=== PATIENT | male | born 1945 | race Caucasian/White ===

== ENCOUNTER → 2017-06-01 15:34 | Outpatient (CLI) | payer OTHER ==
--- NOTE | ~2017-06-01 | EC ---
PATIENT:YOSVANY RUIZ DATE OF SERVICE: SEX: M MEDICAL RECORD: [id number] DATE OF : 45 LOCATION:[facility] AGE OF PATIENT: 71 ADMISSION DATE: 06/01/17 REFERRING PHYSICIAN: INTERPRETING PHYSICIAN: OLEG GUEVARA MD ECHOCARDIOGRAM REPORT ECHO CHARGES 4 ECHO COMPLETE CLINICAL DIAGNOSIS: ISCHEMIC HEART DISEASE, HX OF CAD/CABG 2016, HTN, DYALISIS ECHOCARDIOGRAPHIC MEASUREMENTS (adult normal given) AC root (d.<3.7cm) 4.1 cm LV Septum d (<1.2 cm> 1.3 cm Valve Excursion 1.1 cm LV Septum (systole) 1.4 cm Left Atria (s.<4.0cm> 4.6 cm LVPW d(<1.2cm) 1.3 cm RV (d.<2.3cm) 5.2 cm LVPW (sytole) 1.6 cm LV diastole(<5.6CM) 6.1 cm MV E-F(>70mm/sec) cm LV systole 3.9 cm LVOT Diameter 1.3 cm MV exc.(>10mm) 1.5 cm Est.ejection fraction (50-75%) % Pericardial Effusion N DOPPLER: LVIT cm/sec A 70.0 cm/sec E 103 cm/sec LA cm/sec RVSP 43 mmHg LVOT 109 cm/sec AOP1/2T m/s Asc. Ao 307 cm/sec RVOT 89 cm/sec RA cm/sec PA 251 cm/sec AV Gradient Peak 37.70mmHg AV Mean 21.54mmHg AV Area 1.3 cm MV Gradient Peak 4.97 mmHg MV Mean 1.00 mmHg MV Area cm COMMENTS: [employer]: Sheila KUMAR Electromechanical Engineer: 1 Dr. Guevara TAPE# PACS DATE OF SERVICE: 06/01/2017 PROCEDURE: Echocardiogram. FINDINGS: 1. Left ventricular chamber size is upper limits of normal, left ventricular systolic function is normal. Overall ejection fraction estimated at 55%. 2. Left atrium is enlarged at 4.6 cm. Right atrium and right ventricular chamber sizes are as well mildly dilated. 3. 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 Valve area calculates to 1.3 cm-squared. There is a gradient of 37 mm across the valve. The remaining valvular structures have normal structure and motion. 4. Doppler interrogation elsewise reveals mild mitral regurgitation, mild tricuspid regurgitation, no other valvular insufficiency or stenosis. Pulmonary systolic pressure is normal estimated at 43 mmHg. 5. No evidence of pericardial effusion or left ventricular thrombus. TRANSINT:[id number] Voice Confirmation ID: [id number] DOCUMENT ID: [id number] OLEG GUEVARA MD at 1018 CC: [id number] DICTATION DATE: 06/01/17 1209 MENTALLY IMPAIRED TEACHER: 06/01/17 1216 [facility] [address] [place] [address]
[2017-06-01 11:40] LABS: APPEARANCE CLEAR (CLEAR); BILIRUBIN NEGATIVE (NEGATIVE); COLOR YELLOW (YELLOW); GLUCOSE NEGATIVE (NEGATIVE); KETONE NEGATIVE (NEGATIVE); NITRITE NEGATIVE (NEGATIVE); PROTEIN 3+ mg/dL (NEGATIVE); UROBILINOGEN NORMAL (NORMAL)
[2017-06-01 11:48] LABS: ALBUMIN 3.7 g/dL (3.4-5.0); ANION GAP 13.4 mmol/L (8-16); BILIRUBIN - TOTAL 0.39 mg/dL (0.2-1.3); CALCIUM 9.6 mg/dL (8.5-10.1); CREATININE - SERUM 5.6 mg/dL (0.6-1.3); POTASSIUM - SERUM 4.4 mmol/L (3.5-5.1); PROTEIN - SERUM 6.7 g/dL (6.4-8.2)
[2017-06-01 11:49] LABS: BACTERIA MODERATE /hpf (NONE SEEN); EPITHELIAL CELLS 0-5 /hpf (0-5); HYALINE CAST 0-5 /lpf (NONE SEEN); MUCUS <1+ /lpf (NONE SEEN); RED CELLS - URINE 0-5 /hpf (0-5); WHITE CELLS - URINE OCC /hpf (0-5)
== END ==
LOC: D.ECHO 05-30 09:00 → D.LAB 05-30 11:00 → D.ECHO 11:00
PROVIDERS: Orthopaedic Surgery
DX: I25.9 Chronic ischemic heart disease, unspecified (principal); E11.65 Type 2 diabetes mellitus with hyperglycemia